=== PATIENT | female | born 1965 | race African-American/Black ===

== ENCOUNTER 2019-10-15 21:58 | Emergency (ER) | payer MEDICAID ==
[~2019-10-15] VITALS: Ht 160 cm; Wt 68.0 kg
[2019-10-16 04:00] VITALS: BP 152/87
== END 2019-10-16 04:00 | disposition home or self-care (01) ==
LOC: ER 21:58
DX: M54.5 Low back pain (principal); M54.2 Cervicalgia; W01.0XXA Fall on same level from slipping, tripping and stumbling without subsequent striking against object, initial encounter; Y93.89 Activity, other specified; Y92.89 Other specified places as the place of occurrence of the external cause; Y99.8 Other external cause status
CPT/HCPCS: 72100; 99283